=== PATIENT | female | born 2000 | race Two or more races ===

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

== ENCOUNTER 2022-04-13 15:47 | Emergency (ER) | payer OTHER ==
[2022-04-13 16:14] VITALS: RESP 20; TEMP 98
--- NOTE | 2022-04-13 16:37 | XR ---
EXAMINATION TYPE: XR chest 2V DATE OF EXAM: 04/13/2022 COMPARISON: NONE HISTORY: Syncope TECHNIQUE: 2 view FINDINGS: Heart and mediastinum are normal. Lungs are clear. Diaphragm is normal. Bony thorax is inta ct. IMPRESSION: Normal chest.
[2022-04-13] MEDS ORDERED: SODIUM CHLORIDE 0.9% 1,000 ML IV ONE (18:28)
[2022-04-13 18:38] LABS: Basophils # (A) 0.1 k/uL (0-0.2); Basophils % (A) 1 %; Eosinophils # (A) 0.5 k/uL (0-0.7); Eosinophils % (A) 6 %; HCT 34.8 % (34.0-46.0); HGB 11.2 gm/dL (11.4-16.0); Lymphocytes # (A) 2.3 k/uL (1.0-4.8); Lymphocytes % (A) 26 %; MCH 26.7 pg (25.0-35.0); MCHC 32.2 g/dL (31.0-37.0); MCV 82.9 fL (80.0-100.0); Mean Platelet Volume 8.7; Monocytes # (A) 0.3 k/uL (0-1.0); Monocytes % (A) 4 %; Neutrophils # (A) 5.5 k/uL (1.3-7.7); Neutrophils % (A) 63 %; Platelet Count 342 k/uL (150-450); RDW 14.7 % (11.5-15.5); WBC 8.8 k/uL (4.0-11.0)
[2022-04-13 18:50] LABS: ALT 11 U/L (4-34); AST 19 U/L (14-36); African American GFR (CKD) >90 (>60 ml/min/1.73 sqM); Albumin 3.8 g/dL (3.5-5.0); Alkaline Phosphatase 117 U/L (38-126); Anion Gap 12 mmol/L; Blood Urea Nitrogen 10 mg/dL (7-17); Calcium 9.3 mg/dL (8.4-10.2); Carbon Dioxide 21 mmol/L (22-30); Chloride 105 mmol/L (98-107); Glucose 87 mg/dL (74-99); Non-African American GFR(CKD) >90 (>60 ml/min/1.73 sqM); Potassium 4.3 mmol/L (3.5-5.1); Sodium 138 mmol/L (137-145); Total Bilirubin 0.3 mg/dL (0.2-1.3); Total Protein 6.8 g/dL (6.3-8.2)
[2022-04-13 18:57] LABS: Prothrombin Time 10.5 sec (9.0-12.0)
[2022-04-13 19:10] LABS: Partial Thromboplastin Time 19.3 sec (22.0-30.0)
[2022-04-13 19:11] LABS: Amorphous Sediment,Urine Rare /hpf; Appearance,Urine Cloudy (Clear); Bacteria,Urine Occasional /hpf; Bilirubin,Urine Negative (Negative); Blood,Urine Negative (Negative); Color,Urine Yellow; Glucose,Urine (UA) Negative (Negative); Ketones,Urine Negative (Negative); Leukocyte Esterase,Urine Large (Negative); Mucus,Urine Many /hpf; Nitrite,Urine Negative (Negative); Protein,Urine Trace (Negative); Specific Gravity,Urine 1.025 (1.001-1.035); Squamous Epithelial Cell,Urine 23 /hpf (0-4); Urobilinogen,Urine <2.0 mg/dL (<2.0); WBC,Urine 16 /hpf (0-5)
[2022-04-13] MEDS ORDERED: KETOROLAC 15 MG/ML 1 ML VIAL IVP STA (19:48)
[2022-04-13] MEDS ORDERED: DEXAMETHASONE SOD PHOSPHATE 10 MG/ML 1 ML VIAL IVP STA (19:49)
[2022-04-13] MEDS ORDERED: ONDANSETRON 4 MG/2 ML VIAL IVP STA (19:49)
[2022-04-13 20:08] VITALS: BP 144/90; PULSE 80
--- NOTE | 2022-04-13 20:09 | ED ---
General Adult HPI - General Chief complaint: Dizziness Stated complaint: Syncope Time Seen by Provider: 04/13/22 17:25 Source: patient Mode of arrival: ambulatory Limitations: no limitations - History of Present Illness Initial comments: 21-year-old female with past history of asthma and migraines presents emergency department for presyncope. 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 She did catch herself before she sustained any trauma. She denies previous history of cardiac disease. No recent illnesses. Has been eating and drinking without difficulty. Denies black or bloody stools. No concern for . No family history of sudden cardiac . She was seen in the emergency department a few weeks ago for similar complaints. Did not follow up with her primary care doctor. No recent medication changes. Does admit to a mild headache which is chronic for her. No other alleviating, precipitating or modifying factors - Related Data Home Medications Medication Instructions Recorded Confirmed Montelukast [Singulair] 10 mg PO DAILY 12/12/16 12/21/19 Riboflavin (Vitamin B2) [Vitamin 400 mg PO DAILY 10/07/18 12/21/19 B-2] Cholecalciferol [Vitamin D3 (25 1,000 unit PO DAILY 12/21/19 12/21/19 Mcg = 1000 Iu)] Fluticasone Nasal [place] [Flonase 1 spray EA NOSTRIL DAILY PRN 12/21/19 12/21/19 Nasal [place]] Previous Rx's Medication Instructions Recorded Acetaminophen Tab [Tylenol] 650 mg PO Q4HR PRN tab 12/26/19 Magnesium Oxide [Mag-Ox] 400 mg PO HS tab 12/26/19 QUEtiapine [SEROquel] 100 mg PO HS 30 Days tab 12/26/19 Sertraline [Zoloft] 100 mg PO DAILY 30 Days tab 12/26/19 Verapamil [Isoptin] 80 mg PO TID tab 12/26/19 Allergies Allergy/AdvReac Type Severity Reaction Status Date / Time nut - unspecified Allergy Per Verified 04/13/22 16:14 Allergy Testing shellfish derived [Shellfish] Allergy Per Verified 04/13/22 16:14 Allergy Testing soy Allergy Per Verified 04/13/22 16:14 Allergy Testing tomato Allergy Per Verified 04/13/22 16:14 Allergy Testing tree nut [Nut] Allergy Per Verified 04/13/22 16:14 Allergy Testing wheat Allergy Per Verified 04/13/22 16:14 Allergy Testing Review of Systems ROS Statement: Those systems with pertinent positive or pertinent negative responses have been documented in the HPI. ROS Other: All systems not noted in ROS Statement are negative. Past Medical History Past Medical History: Asthma Additional Past Medical History / Comment(s): Migraine headaches History of Any Multi-Drug Resistant Organisms: None Reported Past Surgical History: No Surgical Hx Reported Past Anesthesia/Blood Transfusion Reactions: No Reported Reaction Past Psychological History: Anxiety, Depression Smoking Status: Never smoker Past Alcohol Use History: None Reported Past Drug Use History: None Reported - Past Family History Mother History Unknown: Yes Additional Family Medical History / Comment(s): Depression General Exam Limitations: no limitations General appearance: alert, in no apparent distress Head exam: Present: atraumatic, normocephalic, normal inspection Eye exam: Present: normal appearance, PERRL, EOMI. Absent: scleral icterus, conjunctival injection, periorbital swelling ENT exam: Present: normal exam, mucous membranes moist Neck exam: Present: normal inspection. Absent: tenderness, meningismus, lymphadenopathy Respiratory exam: Present: normal lung sounds bilaterally. Absent: respiratory distress, wheezes, rales, rhonchi, stridor Cardiovascular Exam: Present: regular rate, normal rhythm, normal heart sounds. Absent: systolic murmur, diastolic murmur, rubs, gallop, clicks GI/Abdominal exam: Present: soft, normal bowel sounds. Absent: distended, tenderness, guarding, rebound, rigid Extremities exam: Present: normal inspection, full ROM, normal capillary refill. Absent: tenderness, pedal edema, joint swelling, calf tenderness Back exam: Present: normal inspection Neurological exam: Present: alert, oriented X3, CN II-XII intact Psychiatric exam: Present: normal affect, normal mood Skin exam: Present: warm, dry, intact, normal color. Absent: rash Course Vital Signs 04/13/22 04/13/22 04/13/22 16:10 20:06 20:07 Temperature 98.0 F Pulse Rate 74 Pulse Rate [ 74 77 Left] Respiratory 20 Rate Blood Pressure 125/85 Blood Pressure 124/76 124/86 [Left Arm] O2 Sat by Pulse 99 Oximetry 04/13/22 20:08 Temperature Pulse Rate Pulse Rate [ 80 Left] Respiratory Rate Blood Pressure Blood Pressure 144/90 [Left Arm] O2 Sat by Pulse Oximetry EKG Findings - EKG Comments: EKG Findings:: EKG demonstrates sinus rhythm with a rate of 64. MS interval 153. QRS 98. QTC of 443. Inverted T-wave in lead 3. No acute ST segment elevations Medical Decision Making - Medical Decision Making Upon arrival patient was placed in room 6. Thorough history and physical exam is performed. 12-lead EKG was obtained. IV access is established. Orthostatics are performed which are negative. Laboratory studies were conducted and reviewed. Chest x-ray demonstrates no acute process. Results are discussed the patient. I believe the patient would benefit from cardiac evaluation and echo. Patient is instructed to follow up with the primary care doctor for further testing. Return for any new or worsening symptoms. Patient discharged home in stable condition - Lab Data Result diagrams: 04/13/22 18:25 04/13/22 18:25 Lab Results 04/13/22 04/13/22 04/13/22 Range/Units 18:25 18:25 18:25 WBC 8.8 (4.0-11.0) k/uL RBC 4.20 (3.80-5.40) m/uL Hgb 11.2 L (11.4-16.0) gm/dL Hct 34.8 (34.0-46.0) % MCV 82.9 (80.0-100.0) fL MCH 26.7 (25.0-35.0) pg MCHC 32.2 (31.0-37.0) g/dL RDW 14.7 (11.5-15.5) % Plt Count 342 (150-450) k/uL MPV 8.7 Neutrophils % 63 % Lymphocytes % 26 % Monocytes % 4 % Eosinophils % 6 % Basophils % 1 % Neutrophils # 5.5 (1.3-7.7) k/uL Lymphocytes # 2.3 (1.0-4.8) k/uL Monocytes # 0.3 (0-1.0) k/uL Eosinophils # 0.5 (0-0.7) k/uL Basophils # 0.1 (0-0.2) k/uL PT 10.5 (9.0-12.0) sec INR 1.0 (<1.2) APTT 19.3 L (22.0-30.0) sec Sodium 138 (137-145) mmol/L Potassium 4.3 (3.5-5.1) mmol/L Chloride 105 (98-107) mmol/L Carbon Dioxide 21 L (22-30) mmol/L Anion Gap 12 mmol/L BUN 10 (7-17) mg/dL Creatinine 0.57 (0.52-1.04) mg/dL Est GFR (CKD-EPI)AfAm >90 (>60 ml/min/1.73 sqM) Est GFR (CKD-EPI)NonAf >90 (>60 ml/min/1.73 sqM) Glucose 87 (74-99) mg/dL Calcium 9.3 (8.4-10.2) mg/dL Total Bilirubin 0.3 (0.2-1.3) mg/dL AST 19 (14-36) U/L ALT 11 (4-34) U/L Alkaline Phosphatase 117 (38-126) U/L Troponin I (0.000-0.034) ng/mL Total Protein 6.8 (6.3-8.2) g/dL Albumin 3.8 (3.5-5.0) g/dL Urine Color Urine Appearance (Clear) Urine pH (5.0-8.0) Ur Specific [place] (1.001-1.035) Urine Protein (Negative) Urine Glucose (UA) (Negative) Urine Ketones (Negative) Urine Blood (Negative) Urine Nitrite (Negative) Urine Bilirubin (Negative) Urine Urobilinogen (<2.0) mg/dL Ur Leukocyte Esterase (Negative) Urine WBC (0-5) /hpf Ur Squamous Epith Cells (0-4) /hpf Amorphous Sediment (None) /hpf Urine Bacteria (None) /hpf Urine Mucus (None) /hpf Urine HCG, Qual (Not Detectd) 04/13/22 04/13/22 04/13/22 Range/Units 18:25 18:40 18:40 WBC (4.0-11.0) k/uL RBC (3.80-5.40) m/uL Hgb (11.4-16.0) gm/dL Hct (34.0-46.0) % MCV (80.0-100.0) fL MCH (25.0-35.0) pg MCHC (31.0-37.0) g/dL RDW (11.5-15.5) % Plt Count (150-450) k/uL MPV Neutrophils % % Lymphocytes % % Monocytes % % Eosinophils % % Basophils % % Neutrophils # (1.3-7.7) k/uL Lymphocytes # (1.0-4.8) k/uL Monocytes # (0-1.0) k/uL Eosinophils # (0-0.7) k/uL Basophils # (0-0.2) k/uL PT (9.0-12.0) sec INR (<1.2) APTT (22.0-30.0) sec Sodium (137-145) mmol/L Potassium (3.5-5.1) mmol/L Chloride (98-107) mmol/L Carbon Dioxide (22-30) mmol/L Anion Gap mmol/L BUN (7-17) mg/dL Creatinine (0.52-1.04) mg/dL Est GFR (CKD-EPI)AfAm (>60 ml/min/1.73 sqM) Est GFR (CKD-EPI)NonAf (>60 ml/min/1.73 sqM) Glucose (74-99) mg/dL Calcium (8.4-10.2) mg/dL Total Bilirubin (0.2-1.3) mg/dL AST (14-36) U/L ALT (4-34) U/L Alkaline Phosphatase (38-126) U/L Troponin I <0.012 (0.000-0.034) ng/mL Total Protein (6.3-8.2) g/dL Albumin (3.5-5.0) g/dL Urine Color Yellow Urine Appearance Cloudy H (Clear) Urine pH 5.0 (5.0-8.0) Ur Specific [place] 1.025 (1.001-1.035) Urine Protein Trace H (Negative) Urine Glucose (UA) Negative (Negative) Urine Ketones Negative (Negative) Urine Blood Negative (Negative) Urine Nitrite Negative (Negative) Urine Bilirubin Negative (Negative) Urine Urobilinogen <2.0 (<2.0) mg/dL Ur Leukocyte Esterase Large H (Negative) Urine WBC 16 H (0-5) /hpf Ur Squamous Epith Cells 23 H (0-4) /hpf Amorphous Sediment Rare H (None) /hpf Urine Bacteria Occasional H (None) /hpf Urine Mucus Many H (None) /hpf Urine HCG, Qual Not Detected (Not Detectd) Disposition Clinical Impression: Pre-syncope Disposition: HOME SELF-CARE Condition: Stable Instructions (If sedation given, give patient instructions): Near Syncope (ED) Additional Instructions: I recommend you follow up with your primary care doctor in 2-4 days. May need cardiac evaluation to include echo, Holter monitoring. Return for any new or worsening symptoms Is patient prescribed a controlled substance at d/c from ED?: No Referrals: Willian Parrish Jr, [Primary Care Provider] - 1-2 days Time of Disposition: 20:09
== END 2022-04-13 20:42 | disposition home or self-care (01) ==
LOC: EC 15:47
DX: R55 Syncope and collapse (principal); J45.909 Unspecified asthma, uncomplicated; Z91.09 Other allergy status, other than to drugs and biological substances; Z91.013 Allergy to seafood; Z91.018 Allergy to other foods
CPT/HCPCS: 36415; 71046; 80053; 81001; 81025; 84484; 85025; 85610; 85730; 87086; 93005; 99285